=== PATIENT | female | born 1950 | race Caucasian/White ===

== ENCOUNTER → 2018-04-12 | Outpatient (CLI) | payer MEDICARE, OTHER | END | disposition home or self-care (01) | LOC: US 10:03 | DX: K76.0 Fatty (change of) liver, not elsewhere classified (principal) ==

== ENCOUNTER → 2018-08-19 | Outpatient (CLI) | payer MEDICARE | END | disposition home or self-care (01) | LOC: RAD 13:23 | DX: M47.897 Other spondylosis, lumbosacral region (principal) ==

== ENCOUNTER 2020-04-23 00:16 | Inpatient (IN) | payer MEDICARE, OTHER ==
[2020-04-23] VITALS (7 sets, daily range): BP systolic 106–144; BP diastolic 48–80
[~2020-04-23] VITALS: Ht 162.6 cm; Wt 62.2 kg
[2020-04-23 02:10] LABS: BASO % 0.4 % (0.0-1.0); EOS % 0.4 % (1.0-4.0); LYMPH # 1.1 10*3/uL (1.3-4.4); LYMPH % 20.5 % (27.0-41.0); MEAN CELL VOLUME 86.6 fl (81.0-99.0); MEAN CORPUSCULAR HGB 30.9 pg (27.0-31.0); MEAN CORPUSCULAR HGB CONC 35.7 g/dl (33.0-37.0); MEAN PLATELET VOLUME 9.6 fl (9.6-12.3); MONO # 0.5 10*3/uL (0.1-1.0); NEUT # 3.6 10*3/uL (2.3-7.9); NEUT % 69.5 % (47.0-73.0); PLATELET COUNT AUTOMATED 87 10*3/uL (130-400); RED BLOOD COUNT 4.04 10*6/uL (4.10-5.10); RED CELL DISTRI WIDTH 12.7 % (0-14.5); WHITE BLOOD COUNT 5.1 10*3/uL (4.8-10.8)
[2020-04-23 02:22] LABS: ALBUMIN 3.7 gm/dl (3.1-4.5); ALKALINE PHOSPHATASE 48 U/L (45-117); BUN 13 mg/dl (7-24); CHLORIDE 104 mmol/L (98-107); CREATININE 0.78 mg/dL (0.55-1.02); POTASSIUM 3.8 mmol/L (3.5-5.1); SGOT/AST 19 IU/L (3-35); SGPT/ALT 36 U/L (12-78); SODIUM 135 mmol/L (136-145); TOTAL PROTEIN 7.8 gm/dL (6.4-8.2)
--- NOTE | 2020-04-23 07:05 | NUR ---
PT REPORT ACCEPTED. AWAITING INPATIENT BED ASSIGNMENT. PT REQUESTS TO REMAIN IN CLOTHING PENDING ADMIT. NO VOICED COMPLAINTS. UP TO RESTROOM INDEPENDENTLY.
--- NOTE | 2020-04-23 07:10 | NUR ---
Transfer of to [facility].
[2020-04-23] MEDS ORDERED: Glimepiride1 MG PO (12:09)
[2020-04-23] MEDS ORDERED: METFORMIN XR500 MG PO (12:10)
[2020-04-23] MEDS ORDERED: Synthroid,Levo50 MCG PO (12:11)
[2020-04-23] MEDS ORDERED: LISINOPRIL10 M1 PO (12:12)
--- NOTE | 2020-04-23 13:53 | NUR ---
PATIENT C/O RIGHT EAR PAIN DESCRIBES HURTING AND ITCHING, MEDICATED WITH NORCO.
--- NOTE | 2020-04-23 14:51 | NUR ---
PATIENT REPORTS PAINRIGHT EAR EASING UP, VERSED WHEN IT GETS CLOSE TO TIME FOR ANOTHER IT WORSENS, REINFORCED IT IS AN NEEDED MEDICATION, TIME IS NOTED ON WHITE BOARD.
--- NOTE | 2020-04-23 17:37 | NUR ---
PRN NORCO GIVEN AT THIS TIME FOR 6/10 PAIN IN PATIENT RIGHT EAR. A&O X3 ,CALL LIGHT WITHIN REACH. WILL CONTINUE TO MONITOR.
--- NOTE | 2020-04-23 18:30 | NUR ---
PATIENT STATED THAT PAIN IN HER RIGHT EAR WAS NOW A 4/10 AFTER PRN NORCO WAS GIVEN. A&O X3, CALL LIGHT WITHIN REACH. WILL CONTINUE TO MONITOR.
--- NOTE | 2020-04-23 21:41 | NUR ---
PRN NORCO GIVEN AT THIS TIME FOR PAIN IN PATIENT RIGHT EAR 02/11. EAR DROPS INSTILLED INTO RIGHT EAR PER ORDER, PATIENT TOLERATED WITHOUT INCIDENT. PATIENT PROVIDED WITH A PIECE OF COTTON WHICH SHE PLACED INTO AFFECTED EAR AT THIS TIME TO KEEP DROPS IN. WILL CONTINUE TO MONITOR.
--- NOTE | 2020-04-23 22:20 | NUR ---
PATIENT STATED HER PAIN WAS NOW A 3/10 AFTER PRN NORCO PO WAS ADMINISTERED. A&O X3, CALL LIGHT WITHIN REACH WILL CONTINUE TO MONITOR.
[2020-04-24] VITALS: BP 116/44
--- NOTE | 2020-04-24 03:38 | NUR ---
PATIENT REQUESTED THAT HER BLOOD SUGAR BE CHECKED AT THIS TIME SHE WAS PERSPIRING AND THOUGHT THAT IT MIGHT BE LOW. BGL 161.
[2020-04-24 06:24] LABS: BASO % 0.5 % (0.0-1.0); EOS # 0.1 10*3/uL (0.0-0.4); EOS % 1.7 % (1.0-4.0); LYMPH # 1.3 10*3/uL (1.3-4.4); MEAN CELL VOLUME 87.1 fl (81.0-99.0); MEAN CORPUSCULAR HGB 30.9 pg (27.0-31.0); MEAN CORPUSCULAR HGB CONC 35.5 g/dl (33.0-37.0); MEAN PLATELET VOLUME 10.2 fl (9.6-12.3); MONO # 0.5 10*3/uL (0.1-1.0); MONO % 13.1 % (3.0-9.0); NEUT # 2.1 10*3/uL (2.3-7.9); NEUT % 52.5 % (47.0-73.0); PLATELET COUNT AUTOMATED 80 10*3/uL (130-400); RED BLOOD COUNT 3.56 10*6/uL (4.10-5.10); RED CELL DISTRI WIDTH 12.6 % (0-14.5); WHITE BLOOD COUNT 4.1 10*3/uL (4.8-10.8)
[2020-04-24 06:47] LABS: BUN 7 mg/dl (7-24); CHLORIDE 106 mmol/L (98-107); CREATININE 0.59 mg/dL (0.55-1.02); POTASSIUM 3.7 mmol/L (3.5-5.1); SODIUM 137 mmol/L (136-145)
--- NOTE | 2020-04-24 07:50 | NUR ---
PT RESTING IN BED. NO DISTRESS NOTED. WILL MONITOR
[2020-04-24 08:00] VITALS: BP 110/56
--- NOTE | 2020-04-24 09:03 | NUR ---
PT REQUESTED AND GIVEN TYLENOL FOR C/O RIGHT EAR PAIN PT RATES PAIN 5/10 WILL MONITOR
[2020-04-24] MEDS ORDERED: CIPRO500 MG PO (09:47)
[2020-04-24] MEDS ORDERED: CIPROFLOXACIN2.5 M1 OT (09:48)
[2020-04-24] MEDS ORDERED: MAXIDEX OT (09:51)
--- NOTE | 2020-04-24 11:09 | NUR ---
Discharge instructions reviewed with patient/family. Patient receptive and verbalizes understanding. Follow-up care arranged. Written instructions given to patient/family. MARCO MCCLELLAN
== END 2020-04-24 11:31 | disposition home or self-care (01) | DRG 565 ==
LOC: ED 00:16 → 5E 04:38 → EDHOLD 04:38 → 5E 11:50
PROVIDERS: Nurse Practitioner Family; Student in an Organized Health Care Education/Training Program; ADMIT Emergency Medicine
DX: H61.031 Chondritis of right external ear (principal); E44.1 Mild protein-calorie malnutrition; E87.1 Hypo-osmolality and hyponatremia; H60.501 Unspecified acute noninfective otitis externa, right ear; E11.65 Type 2 diabetes mellitus with hyperglycemia; E03.9 Hypothyroidism, unspecified; I10 Essential (primary) hypertension; Z79.84 Long term (current) use of oral hypoglycemic drugs; Z90.710 Acquired absence of both cervix and uterus; Z98.49 Cataract extraction status, unspecified eye; Z83.3 Family history of diabetes mellitus; Z88.2 Allergy status to sulfonamides; Z68.23 Body mass index [BMI] 23.0-23.9, adult

== ENCOUNTER 2022-09-29 11:43 | Emergency (ER) | payer MEDICARE, OTHER ==
[~2022-09-29] VITALS: Wt 59.0 kg
[~2022-09-29 11:43] MED LIST: CIPRO500 MG PO; CIPROFLOXACIN2.5 M1 OT; Glimepiride1 MG PO; LISINOPRIL10 M1 PO; MAXIDEX OT; METFORMIN XR500 MG PO; Synthroid,Levo50 MCG PO
[2022-09-29 12:20] LABS: BILIRUBIN Negative (Negative); BLOOD Trace-Lysed (Negative); CLARITY Cloudy (Clear); COLOR Yellow (Yellow); GLUCOSE 3+ (Negative); KETONE Negative (Negative); LEUKO ESTERASE 2+ (Negative); NITRITE Negative (Negative); PH 6.5 (4.5-8.0); UROBILINOGEN 0.2 E.U./dl (0.0-1.0)
[2022-09-29 12:23] LABS: BASO % 0.4 % (0.0-1.0); EOS # 0.1 10*3/uL (0.0-0.4); EOS % 1.3 % (1.0-4.0); HEMATOCRIT 35.9 % (37.0-47.0); LYMPH # 1.7 10*3/uL (1.3-4.4); LYMPH % 36.8 % (27.0-41.0); MEAN CELL VOLUME 88.4 fl (81.0-99.0); MEAN CORPUSCULAR HGB 31.5 pg (27.0-31.0); MEAN CORPUSCULAR HGB CONC 35.7 g/dl (33.0-37.0); MEAN PLATELET VOLUME 9.8 fl (9.6-12.3); MONO # 0.3 10*3/uL (0.1-1.0); MONO % 7.5 % (3.0-9.0); NEUT # 2.4 10*3/uL (2.3-7.9); NEUT % 53.6 % (47.0-73.0); PLATELET COUNT AUTOMATED 116 10*3/uL (130-400); RED BLOOD COUNT 4.06 10*6/uL (4.10-5.10); WHITE BLOOD COUNT 4.5 10*3/uL (4.8-10.8)
[2022-09-29 12:35] LABS: ALKALINE PHOSPHATASE 67 U/L (46-116); BUN 12 mg/dl (9-23); CHLORIDE 95 mmol/L (98-107); CREATININE 0.89 mg/dL (0.55-1.02); POTASSIUM 4.5 mmol/L (3.4-5.1); SGPT/ALT 22 U/L (10-49); TOTAL PROTEIN 7.1 gm/dL (6.0-8.0)
[2022-09-29 12:48] LABS: BACTERIA 2+; WBC TNTC wbc/hpf (0-5)
[2022-09-29] MEDS ORDERED: CIPRO500 MG PO (13:08)
== END 2022-09-29 13:18 | disposition home or self-care (01) ==
LOC: ED 11:43
PROVIDERS: Nurse Practitioner Family
DX: N39.0 Urinary tract infection, site not specified (principal); E11.65 Type 2 diabetes mellitus with hyperglycemia; Z88.1 Allergy status to other antibiotic agents; Z79.899 Other long term (current) drug therapy; Z90.710 Acquired absence of both cervix and uterus

== ENCOUNTER → 2023-06-11 | Outpatient (CLI) | payer MEDICARE, OTHER | END | disposition home or self-care (01) | LOC: RESCLI 02:20 | PROVIDERS: ATTEND Student in an Organized Health Care Education/Training Program | DX: E11.9 Type 2 diabetes mellitus without complications (principal); I10 Essential (primary) hypertension; E03.9 Hypothyroidism, unspecified; G62.9 Polyneuropathy, unspecified; E78.2 Mixed hyperlipidemia; F32.9 Major depressive disorder, single episode, unspecified; E55.9 Vitamin D deficiency, unspecified; Z88.8 Allergy status to other drugs, medicaments and biological substances; Z88.2 Allergy status to sulfonamides; Z98.890 Other specified postprocedural states; Z79.899 Other long term (current) drug therapy ==

== ENCOUNTER → 2023-08-18 | Outpatient (CLI) | payer MEDICARE, OTHER ==
[2023-08-18 09:52] LABS: BASO % 0.7 % (0.0-1.0); EOS # 0.1 10*3/uL (0.0-0.4); EOS % 1.5 % (1.0-4.0); HEMATOCRIT 39.6 % (37.0-47.0); LYMPH # 1.5 10*3/uL (1.3-4.4); LYMPH % 36.1 % (27.0-41.0); MEAN CELL VOLUME 89.4 fl (81.0-99.0); MEAN CORPUSCULAR HGB 30.2 pg (27.0-31.0); MEAN CORPUSCULAR HGB CONC 33.8 g/dl (33.0-37.0); MEAN PLATELET VOLUME 10.1 fl (9.6-12.3); MONO # 0.3 10*3/uL (0.1-1.0); MONO % 7.3 % (3.0-9.0); NEUT # 2.2 10*3/uL (2.3-7.9); NEUT % 54.2 % (47.0-73.0); PLATELET COUNT AUTOMATED 99 10*3/uL (130-400); RED BLOOD COUNT 4.43 10*6/uL (4.10-5.10); RED CELL DISTRI WIDTH 13.2 % (0-14.5); WHITE BLOOD COUNT 4.1 10*3/uL (4.8-10.8)
[2023-08-18 10:16] LABS: ALKALINE PHOSPHATASE 53 U/L (46-116); BUN 14 mg/dl (9-23); CHLORIDE 107 mmol/L (98-107); CHOLESTEROL 183 mg/dL (<200); LDL CHOLESTEROL 113 mg/dL (9-159); POTASSIUM 4.5 mmol/L (3.4-5.1); SGPT/ALT 27 U/L (5-49); TRIGLYCERIDES 155 mg/dl (<150)
== END | disposition home or self-care (01) ==
LOC: LAB 09:13
PROVIDERS: ATTEND Nurse Practitioner Family
DX: I10 Essential (primary) hypertension (principal); E03.9 Hypothyroidism, unspecified; E11.65 Type 2 diabetes mellitus with hyperglycemia; E55.9 Vitamin D deficiency, unspecified; E78.2 Mixed hyperlipidemia

== ENCOUNTER → 2024-01-13 | Outpatient (CLI) | payer MEDICARE, OTHER ==
[2024-01-13 08:47] LABS: BASO % 0.8 % (0.0-1.0); EOS # 0.1 10*3/uL (0.0-0.4); EOS % 2.7 % (1.0-4.0); HEMATOCRIT 38.4 % (37.0-47.0); LYMPH # 1.7 10*3/uL (1.3-4.4); LYMPH % 36.4 % (27.0-41.0); MEAN CELL VOLUME 87.7 fl (81.0-99.0); MEAN CORPUSCULAR HGB 29.5 pg (27.0-31.0); MEAN CORPUSCULAR HGB CONC 33.6 g/dl (33.0-37.0); MEAN PLATELET VOLUME 8.8 fl (9.6-12.3); MONO # 0.3 10*3/uL (0.1-1.0); MONO % 6.6 % (3.0-9.0); NEUT # 2.5 10*3/uL (2.3-7.9); NEUT % 53.1 % (47.0-73.0); PLATELET COUNT AUTOMATED 141 10*3/uL (130-400); RED BLOOD COUNT 4.38 10*6/uL (4.10-5.10); RED CELL DISTRI WIDTH 12.7 % (0-14.5); WHITE BLOOD COUNT 4.7 10*3/uL (4.8-10.8)
[2024-01-13 09:13] LABS: ALKALINE PHOSPHATASE 54 U/L (46-116); BUN 13 mg/dl (9-23); CHLORIDE 108 mmol/L (98-107); CHOLESTEROL 172 mg/dL (<200); LDL CHOLESTEROL 117 mg/dL (9-159); POTASSIUM 4.2 mmol/L (3.4-5.1); SGPT/ALT 17 U/L (5-49); TOTAL PROTEIN 7.4 gm/dL (6.0-8.0); TRIGLYCERIDES 114 mg/dl (<150)
== END | disposition home or self-care (01) ==
LOC: LAB 08:16
PROVIDERS: ATTEND Nurse Practitioner Family
DX: I10 Essential (primary) hypertension (principal); E11.9 Type 2 diabetes mellitus without complications

== ENCOUNTER 2024-02-05 16:10 | Emergency (ER) | payer MEDICARE, OTHER ==
[~2024-02-05] VITALS: Ht 162.5 cm; Wt 64.0 kg
[2024-02-05] MEDS ORDERED: JARDIANCE25 MG PO (16:23)
[2024-02-05] MEDS ORDERED: SYNTHROID,LEVO75 MCG PO (16:24)
[2024-02-05] MEDS ORDERED: METFORMIN HYDR750 MG PO (16:24)
[2024-02-05] MEDS ORDERED: LANTUS SOL100 UNIT/1 SC (16:24)
[2024-02-05] MEDS ORDERED: GLIMEPIRIDE2 MG PO (16:25)
[2024-02-05] MEDS ORDERED: LEXAPRO5 M1 PO (16:26)
[2024-02-05] MEDS ORDERED: PEPCID20 MG PO (16:26)
[2024-02-05] MEDS ORDERED: ASPIRIN81 M1 PO (16:26)
[2024-02-05] MEDS ORDERED: COLACE100 MG PO (16:27)
[2024-02-05] MEDS ORDERED: Ketorolac Tromethamine 30 MG/ML VIAL IM ONE (17:10)
[2024-02-05] MEDS ORDERED: Dexamethasone Sodium Phospha 20 MG/5 ML VIAL IM ONE (17:10)
[2024-02-05] MEDS ORDERED: CYCLOBENZAPRINE5 M3 PO (18:23)
[2024-02-05] MEDS ORDERED: PREDNISONE50 MG PO (18:23)
== END 2024-02-05 18:24 | disposition home or self-care (01) ==
LOC: ED 16:10
DX: M62.830 Muscle spasm of back (principal); E11.9 Type 2 diabetes mellitus without complications; I10 Essential (primary) hypertension; Z88.2 Allergy status to sulfonamides; Z88.1 Allergy status to other antibiotic agents; Z88.8 Allergy status to other drugs, medicaments and biological substances; Z90.710 Acquired absence of both cervix and uterus; Z98.890 Other specified postprocedural states